=== PATIENT | male | born 1960 | race Caucasian/White ===

== ENCOUNTER → 2023-03-29 | Outpatient (REF) | payer BC ==
[2023-03-29 17:15] LABS: C REACTIVE PROTEIN QUANTITATIV < 0.40 MG/DL (<1.0)
[2023-03-29 17:19] LABS: TOTAL 25(OH) VITAMIN D 26.3 NG/ML (20.0-100.0)
[2023-03-29 17:25] LABS: HEPATITIS B SURFACE ANTIBODY NEGATIVE (POSITIVE)
[2023-03-29 17:36] LABS: HEPATITIS B SURFACE ANTIGEN NEGATIVE (NEGATIVE)
[2023-03-29 17:57] LABS: HEPATITIS C VIRUS ABY INDEX 0.08 INDEX (<0.8)
== END ==
LOC: M SFHCRHEU 15:00
PROVIDERS: ATTEND Internal Medicine
DX: M06.00 Rheumatoid arthritis without rheumatoid factor, unspecified site (principal); Z11.59 Encounter for screening for other viral diseases; M85.839 Other specified disorders of bone density and structure, unspecified forearm

== ENCOUNTER → 2023-11-08 | Outpatient (CLI) | payer BC | LOC: M PLAIMG 10:17 | PROVIDERS: ATTEND Registered Nurse | DX: M25.521 Pain in right elbow (principal) ==

== ENCOUNTER 2024-08-29 07:32 | Outpatient (RCR) | payer BC | END 2024-09-01 | LOC: M PT 07:32 | PROVIDERS: ATTEND Nurse Practitioner Family | DX: C86.60 Primary cutaneous CD30-positive T-cell proliferations not having achieved remission (principal); Z85.72 Personal history of non-Hodgkin lymphomas ==

== ENCOUNTER → 2024-10-02 | Outpatient (RCR) | payer BC | LOC: M PT 09-04 08:19 | PROVIDERS: ATTEND Nurse Practitioner Family | DX: C86.60 Primary cutaneous CD30-positive T-cell proliferations not having achieved remission (principal) ==

== ENCOUNTER 2024-11-01 12:46 | Outpatient (RCR) | payer BC | END 2024-11-02 | LOC: M PT 12:46 | PROVIDERS: ATTEND Nurse Practitioner Family | DX: C86.60 Primary cutaneous CD30-positive T-cell proliferations not having achieved remission (principal); Z85.72 Personal history of non-Hodgkin lymphomas ==

== ENCOUNTER → 2024-11-01 | Outpatient (REF) | payer BC ==
[2024-11-01 13:49] LABS: LDH LACTATE DEHYDROGENASE 168 U/L (120-246)
[2024-11-01 13:50] LABS: ALBUMIN 3.7 G/DL (3.2-5.2); ALKALINE PHOSPHATASE 60 U/L (40-129); ALT/SGPT 26 U/L (7.0-40); AST/SGOT 20 U/L (<34); BILIRUBIN,TOTAL 0.7 MG/DL (0.3-1.2); BLOOD UREA NITROGEN 12 MG/DL (9-23); CALCIUM LEVEL 9.5 MG/DL (8.3-10.6); CARBON DIOXIDE LEVEL 29 MMOL/L (20-31); CHLORIDE LEVEL 104 MMOL/L (98-107); CREATININE FOR GFR 1.24 MG/DL (0.70-1.30); GLOMERULAR FILTRATION RATE > 60.0 (>49); GLUCOSE, FASTING 50 MG/DL (74-106); POTASSIUM SERUM 4.3 MMOL/L (3.5-5.1); SODIUM LEVEL 143 MMOL/L (136-145); TOTAL PROTEIN 7.3 G/DL (5.7-8.2)
[2024-11-01 13:53] LABS: BASO # 0.1 10^3/uL (0.0-0.2); BASO % 1.6 % (0.0-1.0); EOS # 0.2 10^3/uL (0.0-0.5); EOS % 4.2 % (0.0-3.0); HEMATOCRIT 45.7 % (42.0-52.0); LYMPH # 1.5 10^3/uL (1.5-5.0); LYMPH % 26.7 % (24.0-44.0); MEAN CORPUSCULAR HEMOGLOBIN 30.4 pg (27.0-33.0); MEAN CORPUSCULAR HGB CONC 32.8 g/dl (32.0-36.5); MEAN CORPUSCULAR VOLUME 92.5 fl (80.0-96.0); MONO # 0.6 10^3/uL (0.0-0.8); MONO % 11.4 % (2.0-8.0); NEUTROPHILS # 3.1 10^3/uL (1.5-8.5); NEUTROPHILS % 55.9 % (36.0-66.0); PLATELET COUNT, AUTOMATED 217 10^3/uL (150-450); RED BLOOD COUNT 4.94 10^6/uL (4.30-6.10); WHITE BLOOD COUNT 5.5 10^3/uL (4.0-10.0)
== END ==
LOC: M SFHCADAM 08:39
PROVIDERS: ATTEND Nurse Practitioner Family
DX: C86.60 Primary cutaneous CD30-positive T-cell proliferations not having achieved remission (principal)

== ENCOUNTER → 2024-11-23 | Outpatient (CLI) | payer BC ==
[~2024-11-23] MED LIST: HYDR-3363; ISOVUE-370 76% 100ML VIAL As Ordered ONE; PROP10TA56; TADA20TA
== END ==
LOC: M RAD 13:59
PROVIDERS: ATTEND Specialist
DX: C91.50 Adult T-cell lymphoma/leukemia (HTLV-1-associated) not having achieved remission (principal); I70.8 Atherosclerosis of other arteries; K40.20 Bilateral inguinal hernia, without obstruction or gangrene, not specified as recurrent
CPT/HCPCS: 71260; 74177; Q9967

== ENCOUNTER 2024-11-29 14:00 | Outpatient (RCR) | payer BC ==
[~2024-11-29 14:00] MED LIST changes: -LIDOCAINE 1% MDV 20ML VIAL SC ONE
== END 2024-11-30 ==
LOC: M PT 14:00
PROVIDERS: ATTEND Nurse Practitioner Family
DX: C86.60 Primary cutaneous CD30-positive T-cell proliferations not having achieved remission (principal)

== ENCOUNTER → 2024-11-29 | Outpatient (CLI) | payer BC ==
[~2024-11-29] MED LIST changes: -ISOVUE-370 76% 100ML VIAL As Ordered ONE; +LIDOCAINE 1% MDV 20ML VIAL SC ONE
[2024-11-29 12:05] VITALS: TEMP 97.9
[2024-11-29 12:49] LABS: BASO # 0.1 10^3/uL (0.0-0.2); BASO % 0.9 % (0.0-1.0); EOS # 0.2 10^3/uL (0.0-0.5); EOS % 3.8 % (0.0-3.0); HEMATOCRIT 42.5 % (42.0-52.0); HEMOGLOBIN 13.7 g/dl (13.5-17.5); LYMPH # 1.5 10^3/uL (1.5-5.0); LYMPH % 26.5 % (24.0-44.0); MEAN CORPUSCULAR HEMOGLOBIN 29.7 pg (27.0-33.0); MEAN CORPUSCULAR HGB CONC 32.2 g/dl (32.0-36.5); MEAN CORPUSCULAR VOLUME 92.2 fl (80.0-96.0); MONO # 0.6 10^3/uL (0.0-0.8); MONO % 10.6 % (2.0-8.0); NEUTROPHILS # 3.2 10^3/uL (1.5-8.5); NEUTROPHILS % 57.8 % (36.0-66.0); PLATELET COUNT, AUTOMATED 208 10^3/uL (150-450); RED BLOOD COUNT 4.61 10^6/uL (4.30-6.10); WHITE BLOOD COUNT 5.5 10^3/uL (4.0-10.0)
[2024-11-29 13:30] VITALS: BP 133/88; O2SAT 100
== END ==
LOC: M IRPRO 11:55
PROVIDERS: ATTEND Specialist
DX: C84.A0 Cutaneous T-cell lymphoma, unspecified, unspecified site (principal)

== ENCOUNTER 2024-12-26 12:51 | Outpatient (RCR) | payer BC | END 2024-12-31 | LOC: M PT 12:51 | PROVIDERS: ATTEND Nurse Practitioner Family | DX: C86.60 Primary cutaneous CD30-positive T-cell proliferations not having achieved remission (principal) ==

== ENCOUNTER 2025-01-17 10:00 | Outpatient (RCR) | payer BC | END 2025-01-30 | LOC: M PT 10:00 | PROVIDERS: ATTEND Nurse Practitioner Family | DX: C86.60 Primary cutaneous CD30-positive T-cell proliferations not having achieved remission (principal); Z85.72 Personal history of non-Hodgkin lymphomas ==

== ENCOUNTER 2025-05-21 11:02 | Day surgery (SDC) | payer BC ==
[~2025-05-21] VITALS: Ht 171.4 cm; Wt 70.6 kg
[~2025-05-21 11:02] MED LIST changes: -HYDR-3363; +HYDR-3363 PO; +LIDOCAINE 2% 100 MG/5 ML SDV (FOR ANES.) As Ordered ONE; -PROP10TA56; +PROP10TA56 PO; -TADA20TA; +TADA20TA PO
[2025-05-21 12:39] VITALS: TEMP 97
[2025-05-21 13:04] VITALS: BP 128/84; O2SAT 100
== END 2025-05-21 13:15 | disposition home or self-care (01) ==
LOC: M OPP 11:02
PROVIDERS: ATTEND Surgery
DX: Z12.11 Encounter for screening for malignant neoplasm of colon (principal); K57.30 Diverticulosis of large intestine without perforation or abscess without bleeding; Z98.0 Intestinal bypass and anastomosis status; Z79.899 Other long term (current) drug therapy